=== PATIENT | female | born 1930 | race Caucasian/White ===

== ENCOUNTER → 2019-02-28 | Outpatient (CLI) | payer OTHER, BC ==
[~2019-02-28] MED LIST: ALBUTEROL2.5 MG/31 INH; ALIGN4 MG PO; B-12250 MCG PO; B-122500 MCG PO; BENADRYL25 MG PO; BISA-LAX5 MG RECTAL; CARISOPRODOL 3350 MG PO; CIPRO500 MG PO; CIPROFLOXACIN500 M1 PO; CITRACAL + D C1 EACH PO; COLACE 100 MG100 MG PO; COLACE100 MG PO; DESITIN113 GM TOP; DIFLUCAN200 MG PO; DIOVAN 80 MG TA80 M1 PO; ENOXAPARIN100 MG/11 SUBQ; ENOXAPARIN60 MG/0.1 SUBQ; EXFORGE 5-1601 EACH PO; EXFORGE PO; FEROSUL325 M1 PO; HYDROCODON-ACE1 EAC7 PO; LASIX 40 MG TAB40 M1 PO; LEXAPRO 10 MG T10 MG PO; LISINOPRIL10 MG; LOPRESSOR 12.12.5 MG PO; LOPRESSOR25 PO; MAG-AL PLUS SUS30 ML PO; MAGNES PO; MAGNESIUM100 MG PO; MAGNESIUM400 MG PO; MELOXICAM7.5 MG PO; MILK OF MA2400 MG/10 PO; MOBIC7.5 MG PO; NEURONTIN100 MG PO; NO HOME MEDS; NORCO 5-325 TA1 EACH PO; ONDANSETRON HCL4 M2 PO; PACERONE 200 M200 M1 PO; POLYETHYLENE G255 GM PO; POTASSIUM99 M1 PO; PREDNISONE 1 MG1 M1 PO; PREDNISONE 5 MG5 M1 PO; SENNA8.6 MG PO; SLOW FE 160MG160 MG PO; TRAMADOL 50 MG50 MG PO; TRAMADOL PO; TYLENOL325 MG PO; VITAMIN B-12100 MC1; VITAMIN B-12500 MCG PO; VITAMIN D1000 UNI1 PO; VITAMIN D400 UNI1; VOLTAREN GEL 1100 G1 TOP; ZETIA10 MG PO; [UNRECOGNIZED DRUG - OTHER] PO
== END ==
LOC: SJCVC 11:55
DX: I21.29 ST elevation (STEMI) myocardial infarction involving other sites (principal); R94.31 Abnormal electrocardiogram [ECG] [EKG]; I35.0 Nonrheumatic aortic (valve) stenosis; I48.0 Paroxysmal atrial fibrillation; E78.5 Hyperlipidemia, unspecified; E11.22 Type 2 diabetes mellitus with diabetic chronic kidney disease; N18.9 Chronic kidney disease, unspecified; I12.9 Hypertensive chronic kidney disease with stage 1 through stage 4 chronic kidney disease, or unspecified chronic kidney disease; M06.9 Rheumatoid arthritis, unspecified; E11.40 Type 2 diabetes mellitus with diabetic neuropathy, unspecified; Z90.49 Acquired absence of other specified parts of digestive tract; Z79.899 Other long term (current) drug therapy